=== PATIENT | female | born 1980 | race American Indian/Alaskan Native ===

== ENCOUNTER 2017-05-04 19:15 | Emergency (ER) | payer SELFPAY ==
--- NOTE | 2017-05-04 21:29 | Emergency Department Report ---
Blank Doc - Documentation Documentation: Patient is a 36-year-old [place] female who is presenting with right sided headache and a buzzing water sensation in her right ear for the past month. Patient states is worse when she is lying flat or lying on her right side. Patient denies any trauma nausea vomiting abdominal pain chest pain at this time. Patient will be sent for a CT of the head just to rule out mass. Mastoiditis or any other abnormalities
[2017-05-04 22:11] LABS: Bacteria,Urine 1+ /HPF (Negative); Bilirubin,Urine NEG (Negative); Blood,Urine NEG (Negative); Color,Urine Yellow (Yellow); Nitrite,Urine NEG (Negative); Protein,Urine <15 mg/dL mg/dL (Negative); Urobilinogen,Urine < 2.0 mg/dL (<2.0)
[2017-05-04 22:12] LABS: HCG Qualitative,Urine Negative (Negative)
--- NOTE | 2017-05-04 22:49 | Cat Scan Report ---
FINAL REPORT PROCEDURE: CT HEAD/BRAIN WO CON TECHNIQUE: Computerized tomography of the head was performed without contrast material. HISTORY: right sied headaches for a month COMPARISON: No prior studies are available for comparison. FINDINGS: Skull and scalp: Normal. Paranasal sinuses: 4 millimeter sclerotic density is noted involving left anterior ethmoid air cells.. Ventricles and subarachnoid spaces: Normal. Cerebrum: No evidence of hemorrhage, acute infarction or mass . Cerebellum and brainstem: No evidence of hemorrhage, acute infarction or mass. Vasculature: Normal. Comments: None. IMPRESSION: No acute intracranial abnormality. 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
[2017-05-05 02:20] VITALS: BP 114/85
--- NOTE | 2017-05-05 02:48 | Emergency Department Report ---
ED Headache HPI - General Chief Complaint: Headache Stated Complaint: HEADACHE Time Seen by Provider: 05/04/17 21:22 Source: patient Exam Limitations: no limitations - History of Present Illness Initial Comments: This is a 36 y.o. female presents with headache for 1 month. It is intermittent and throbbing pain. Pain is 10/10 on scale. Reports "it feels like fire and uncomfortable to sleep". Pain is worse while laying flat and improves while active. It is in the front of her head and sometimes in the back. Denies recent infection, chest pain, SOB, fever, and sick contacts. She has changed diet and taking vitamins with minimal improvement of symptoms. History of seasonal allergies. Timing/Duration: episodic (for 1 month) Quality: moderate, pressure, throbbing Head Injury Location: frontal Recent Head Trauma: no recent headache/trauma Modifying Factors: improves with: other (vitamines and changed diet) Associated Symptoms: denies symptoms Allergies/Adverse Reactions: Allergies No Known Allergies Allergy (Unverified 05/04/17 19:51) Home Medications: Ambulatory Orders Amoxicillin/Potassium Clav [Augmentin 875-125 Tablet] 1 each PO BID 5 Days #10 tablet 05/05/17 Fluticasone [Flonase] 1 spray NS QDAY #1 bottle 05/05/17 ED Review of Systems ROS: Stated complaint: HEADACHE Other details as noted in HPI Constitutional: denies: chills, fever ENT: denies: ear pain, throat pain, congestion Respiratory: denies: cough, shortness of breath, wheezing Cardiovascular: denies: chest pain, palpitations Gastrointestinal: denies: abdominal pain, nausea, diarrhea Neurological: headache. denies: weakness, paresthesias ED Past Medical Hx - Past Medical History Previous Medical History?: No - Surgical History Past Surgical History?: No - Social History Smoking Status: Never Smoker Substance Use Type: None - Medications Home Medications: Home Medications Medication Instructions Recorded Confirmed Last Taken Type Amoxicillin/Potassium Clav 1 each PO BID 5 Days #10 tablet 05/05/17 Unknown Rx [Augmentin 875-125 Tablet] Fluticasone [Flonase] 1 spray NS QDAY #1 bottle 05/05/17 Unknown Rx ED Physical Exam - General Limitations: No Limitations General appearance: alert, in no apparent distress - ENT ENT exam: Present: mucous membranes moist, TM's normal bilaterally, other (pale swollen turbinates, clear discharge, tenderness on frontal sinues bilaterally) - Neck Neck exam: Present: normal inspection, full ROM - Respiratory Respiratory exam: Present: normal lung sounds bilaterally. Absent: respiratory distress - Cardiovascular Cardiovascular Exam: Present: regular rate, normal rhythm. Absent: systolic murmur, diastolic murmur, rubs, gallop - GI/Abdominal GI/Abdominal exam: Present: soft, normal bowel sounds - Neurological Exam Neurological exam: Present: alert, oriented X3, normal gait - Skin Skin exam: Present: warm, dry, intact, normal color. Absent: rash ED Course Vital Signs 05/04/17 05/05/17 19:49 02:16 Temperature 98.6 F Pulse Rate 100 H 77 Respiratory 18 16 Rate Blood Pressure 121/83 114/85 O2 Sat by Pulse 100 100 Oximetry ED Medical Decision Making - Radiology Data Radiology results: report reviewed CT of head/brain IMPRESSION: No acute intracranial abnormality. 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 female that presents with intermittent headache for 1 month. Pain is causing difficulty sleeping. Patient is stable and was examined by me. UA and HCG ordered. HCG negative and UA elevated WBC. CT of head obtained and dictated by radiologist. Patient notified of results. No signs of distress noted. Follow up with PCP or ENT. Start augmentin and flonase for sinusitis. No further questions noted by the patient. Discharged home in stable condition. Follow up with PCP in 24-72 hours. Critical care attestation.: If time is entered above; I have spent that time in minutes in the direct care of this critically ill patient, excluding procedure time. ED Disposition Clinical Impression: Acute ethmoidal sinusitis Qualifiers: Recurrence: non-recurrent Qualified Code(s): J01.20 - Acute ethmoidal sinusitis , unspecified Allergic rhinitis Qualifiers: Allergic rhinitis trigger: unspecified Allergic rhinitis seasonality: seasonal Qualified Code(s): J30.2 - Other seasonal allergic rhinitis Disposition: DC-01 TO HOME OR SELFCARE Is pt being admited?: No Does the pt Need Aspirin: No Condition: Stable Instructions: Sinusitis (ED) Additional Instructions: Follow up with ENT or primary care provider if symptoms are not improved at completion of medication. Prescriptions: Amoxicillin/Potassium Clav [Augmentin 875-125 Tablet] 1 each PO BID 5 Days #10 tablet Fluticasone [Flonase] 1 spray NS QDAY #1 bottle Referrals: CHELE YOON MD [Staff Physician] - 3-5 Days NOEL SIMMONS MD [Staff Physician] - 3-5 Days Time of Disposition: 02:56 Print Language: CAMEROONIAN
== END 2017-05-05 03:05 | disposition home or self-care (01) ==
LOC: ED 19:15
DX: J01.20 Acute ethmoidal sinusitis, unspecified (principal); J30.2 Other seasonal allergic rhinitis
CPT/HCPCS: 70450; 81001; 81025